=== PATIENT | female | born 1965 | race Caucasian/White ===

== ENCOUNTER 2017-09-13 10:21 | Outpatient (CLI) | payer OTHER | END 2017-09-13 10:34 | disposition home or self-care (01) | LOC: MRI 10:21 | DX: M54.5 Low back pain (principal) | CPT/HCPCS: 72148 ==

== ENCOUNTER 2018-07-16 10:53 | Emergency (ER) | payer OTHER ==
[~2018-07-16] VITALS: Ht 165.1 cm; Wt 56.7 kg
== END 2018-07-16 14:17 | disposition home or self-care (01) ==
LOC: ER 10:53
DX: B34.9 Viral infection, unspecified (principal)